=== PATIENT | female | born 1965 | race Two or more races ===

== ENCOUNTER 2019-02-10 10:10 | Day surgery (SDC) | payer MEDICAID ==
[2019-02-10] MEDS ORDERED: LIDOCAINE HCL/PF 1% 30 ML SDV ONE (11:43)
[2019-02-10] MEDS ORDERED: IOHEXOL 240MG/ML 50 ML IV ONE (11:43)
[2019-02-10] MEDS ORDERED: BUPIVACAINE 0.5 % PF 150 MG/30 ML VIAL ONE (11:43)
[2019-02-10] MEDS ORDERED: BETA ACET/BET NA PHOS MDV 6 MG/ML VIAL ONE (11:58)
== END 2019-02-10 13:30 | disposition home or self-care (01) ==
LOC: DS 10:10
PROVIDERS: ATTEND Student in an Organized Health Care Education/Training Program
DX: M25.851 Other specified joint disorders, right hip (principal)
CPT/HCPCS: 27095; 73501; 77002; A6402; J0702; J2704; J3490 ×2; Q9966